=== PATIENT | female | born 1970 | race Caucasian/White ===

== ENCOUNTER → 2016-07-13 | Outpatient (CLI) | payer OTHER ==
--- NOTE | 2016-07-13 14:10 | CT ---
EXAMINATION TYPE: CT sinus wo con DATE OF EXAM: 07/13/2016 1:39 PM COMPARISON: NONE HISTORY: 46-year-old female recurrent acute pansinusitis, complains of recurrent sinus infections. CT DLP: 641.6 mGycm Automated exposure control for dose reduction was used. TECHNIQUE: Noncontrast axial views of the paranasal sinuses were obtained. Coronal reconstructions pe rformed. FINDINGS: Trace mucosal thickening involving the maxillary sinuses. Mild mucosal thickening anterior left ethmo id air cells. There is some fatty opacification along the inferior aspect of the left frontal sinus. There is no air-fluid level. Reactive margarita- osteogenesis is not seen. There is no destruction of the osseous martinez of the paranasal sinuses. The osteomeatal complexes are patent. Leftward nasal septal deviation. The imaged brain, sella, skull base and orbits are normal in appearance within the limitations of the current technique utilized. Mastoid air cells and middle ear cavities are well pneumatized. Reformatted images confirm above findings. IMPRESSION: 1. Some frothy opacification in the inferior left frontal sinus could reflect acute sinusitis. Otherw ise, there is mild mucosal thickening within the anterior left ethmoid air cells and trace in the max illary sinuses. 2. Slight leftward nasal septal deviation.
== END | disposition home or self-care (01) ==
LOC: RADCTMAIN 13:05
PROVIDERS: ATTEND Family Medicine
DX: J34.89 Other specified disorders of nose and nasal sinuses (principal); J34.2 Deviated nasal septum
CPT/HCPCS: 70486

== ENCOUNTER → 2020-02-22 | Outpatient (CLI) | payer OTHER ==
--- NOTE | 2020-02-22 10:05 | MM ---
Reason for exam: clinical finding. Last mammogram was performed 6 years ago. History: Patient is postmenopausal. Took hormonal contraceptives for 10 years. Physical Findings: Nurse Summary: 0.5cm nodule in the left breast at 3 o'clock (nurse allyson). MG Diagnostic Mammo w CAD SY Bilateral CC and MLO view(s) were taken. Prior study comparison: March 04, 2014, bilateral MG screening mammo w CAD. The breast tissue is heterogeneously dense. This may lower the sensitivity of mammography. Palpable marker left upper outer quadrant. Underlying dense breast tissue. Central right MLO asymmetric density does not persist on the lateral view. These results were verbally communicated with the patient and result sheet given to the patient on 02/22/20. ASSESSMENT: Incomplete: need additional imaging evaluation, BI-RAD 0 RECOMMENDATION: Ultrasound of the left breast.
--- NOTE | 2020-02-22 10:10 | USB ---
Reason for exam: additional evaluation requested from abnormal screening. History: Patient is postmenopausal. Took hormonal contraceptives for 10 years. US Breast LT Technologist: Sita Mc Left complete breast ultrasound includes all four quadrants, the retroareolar region and axilla. Finding demonstrates a .6 x 0.5 x 0.3cm cystic cluster at 1 o'clock, a 1.1 x 1.4 x 0.9cm mixed lesion at 2 o'clock, palpable, decreasing in size and no longer painful post antibiotics, 3 month follow up recommended, possible infectious etiology and a 1.2 x 0.8 x 0.3cm mixed lesion at 11 o'clock, possible Apocrine cyst cluster, 3 month follow up recommended. These results were verbally communicated with the patient and result sheet given to the patient on 02/22/20. ASSESSMENT: Probably benign, BI-RAD 3 RECOMMENDATION: Ultrasound of the left breast in 3 months. (2 o'clock and 11 o'clock)
== END | disposition home or self-care (01) ==
LOC: RADMAMWWP 08:32
PROVIDERS: ATTEND Family Medicine
DX: N63.20 Unspecified lump in the left breast, unspecified quadrant (principal); N61.0 Mastitis without abscess; R92.8 Other abnormal and inconclusive findings on diagnostic imaging of breast
CPT/HCPCS: 77066

== ENCOUNTER → 2022-02-14 | Outpatient (CLI) | payer OTHER ==
--- NOTE | 2022-02-15 09:31 | MM ---
Reason for Exam: Screening (asymptomatic). Last mammogram was performed 2 year(s) and 0 month(s) ago. Patient History: Menarche at age 12. First Full-Term at age 22. Hysterectomy at age 32. Postmenopausal. Patient used Hormonal Contraceptives for 10 years. Risk Values: Ju 5 year model risk: 0.9%. NCI Lifetime model risk: 8.9%. Prior Study Comparison: 09/01/2009 Bilateral Diagnostic Mammogram, [facility]. 03/04/2014 Bilateral Screening Mammogram, [facility]. 02/22/2020 Bilateral Diagnostic Mammogram, [facility]. Tissue Density: The breast tissue is heterogeneously dense. This may lower the sensitivity of mammography. Findings: Analyzed By CAD. There is no suspicious group of microcalcifications in either breast. Benign calcifications within both breasts. Asymmetry demonstrated within the upper right breast on the MLO view. This is a middle depth. Overall Assessment: Incomplete: need additional imaging evaluation, BI-RAD 0 Management: Diagnostic Mammogram of the right breast. A clinical breast exam by your physician is recommended on an annual basis and results should be correlated with mammographic findings. [facility] will attempt to contact patient to return for supplemental views and ultrasound if indicated. Electronically signed and approved by: Isrrael Roca D.O.
== END | disposition home or self-care (01) ==
LOC: RADMAMWWP 12:17
PROVIDERS: ATTEND Family Medicine
DX: Z12.31 Encounter for screening mammogram for malignant neoplasm of breast (principal); Z78.0 Asymptomatic menopausal state
CPT/HCPCS: 77063; 77067

== ENCOUNTER → 2022-02-21 | Outpatient (CLI) | payer OTHER ==
--- NOTE | 2022-02-21 14:14 | MM ---
Reason for Exam: Additional evaluation requested from abnormal screening. Last screening mammogram was performed less than 1 month ago. Patient History: Menarche at age 12. First Full-Term at age 22. Hysterectomy at age 32. Postmenopausal. Patient used Hormonal Contraceptives for 10 years. Risk Values: Ju 5 year model risk: 0.9%. NCI Lifetime model risk: 8.8%. Tissue Density: Right: The breast tissue is heterogeneously dense. This may lower the sensitivity of mammography. Findings: Analyzed By CAD. Focal asymmetry within the upper outer right breast middle depth 2 cm from the nipple persists with compression. This may represent dense breast tissue. No worrisome cluster of microcalcifications. Overall Assessment: Incomplete: need additional imaging evaluation, BI-RAD 0 Management: Diagnostic Breast Ultrasound of the right breast. A clinical breast exam by your physician is recommended on an annual basis and results should be correlated with mammographic findings. This exam should not preclude additional follow-up of suspicious palpable abnormalities. Results were given to the patient verbally at the time of exam. Electronically signed and approved by: Isrrael Roca D.O.
--- NOTE | 2022-02-21 14:33 | USB ---
Patient History: Menarche at age 12. First Full-Term at age 22. Hysterectomy at age 32. Postmenopausal. Patient used Hormonal Contraceptives for 10 years. Risk Values: Ju 5 year model risk: 0.9%. NCI Lifetime model risk: 8.8%. Technique: Method: Targeted. Prior Study Comparison: 03/04/2014 Bilateral Screening Mammogram, [facility]. 02/22/2020 Bilateral Diagnostic Mammogram, [facility]. 02/14/2022 Bilateral MG 3D screening mammo w/cad, [facility]. Findings: The upper outer quadrant of the right breast, the axilla of the right breast and the retroareolar of the right breast were scanned. Targeted ultrasound of the right breast from 9-12 o'clock was performed with additional evaluation the nipple and axilla. There is a simple cyst with posterior acoustical enhancement and no internal color flow demonstrated within the right breast at 11:00 2 cm from the nipple measuring 1.5 x 1.0 x 1.9 cm. Overall Assessment: Benign, BI-RAD 2 Management: Screening Mammogram of both breasts in 1 year. A clinical breast exam by your physician is recommended on an annual basis and results should be correlated with mammographic findings. This exam should not preclude additional follow-up of suspicious palpable abnormalities. ??Results were given to the patient verbally at the time of exam. Electronically signed and approved by: Isrrael oRca D.O.
--- NOTE | 2022-02-21 14:33 | USB ---
Patient History: Menarche at age 12. First Full-Term at age 22. Hysterectomy at age 32. Postmenopausal. Patient used Hormonal Contraceptives for 10 years. Risk Values: Ju 5 year model risk: 0.9%. NCI Lifetime model risk: 8.8%. Technique: Method: Targeted. Prior Study Comparison: 03/04/2014 Bilateral Screening Mammogram, [facility]. 02/22/2020 Bilateral Diagnostic Mammogram, [facility]. 02/14/2022 Bilateral MG 3D screening mammo w/cad, [facility]. Findings: The upper outer quadrant of the right breast, the axilla of the right breast and the retroareolar of the right breast were scanned. Targeted ultrasound of the right breast from 9-12 o'clock was performed with additional evaluation the nipple and axilla. There is a simple cyst with posterior acoustical enhancement and no internal color flow demonstrated within the right breast at 11:00 2 cm from the nipple measuring 1.5 x 1.0 x 1.9 cm. Overall Assessment: Benign, BI-RAD 2 Management: Screening Mammogram of both breasts in 1 year. A clinical breast exam by your physician is recommended on an annual basis and results should be correlated with mammographic findings. This exam should not preclude additional follow-up of suspicious palpable abnormalities. ??Results were given to the patient verbally at the time of exam. Electronically signed and approved by: Isrrael Roca D.O.
== END | disposition home or self-care (01) ==
LOC: RADMAMWWP 13:07
PROVIDERS: ATTEND Family Medicine
DX: R92.8 Other abnormal and inconclusive findings on diagnostic imaging of breast (principal); Z78.0 Asymptomatic menopausal state
CPT/HCPCS: 77061; 77065

== ENCOUNTER → 2023-02-22 | Outpatient (CLI) | payer OTHER ==
--- NOTE | 2023-02-25 09:45 | MM ---
Reason for Exam: Screening (asymptomatic). Last screening mammogram was performed 12 month(s) ago. Patient History: Menarche at age 12. First Full-Term at age 22. Hysterectomy at age 32. Postmenopausal. Patient used Hormonal Contraceptives for 10 years. Risk Values: Ju 5 year model risk: 1.0%. NCI Lifetime model risk: 8.7%. Prior Study Comparison: 02/22/2020 Bilateral Diagnostic Mammogram, [facility]. 02/14/2022 Bilateral MG 3D screening mammo w/cad, [facility]. 02/21/2022 Right MG 3D work up w/cad RT, [facility]. Tissue Density: The breast tissue is heterogeneously dense. This may lower the sensitivity of mammography. Findings: Analyzed By CAD. There is no suspicious group of microcalcifications or new suspicious mass. Overall Assessment: Negative, BI-RAD 1 Management: Screening Mammogram of both breasts in [address] [facility] will attempt to contact patient to return for supplemental views and ultrasound if indicated. Patient should continue monthly self-breast exams. A clinical breast exam by your physician is recommended on an annual basis. This exam should not preclude additional follow-up of suspicious palpable abnormalities. Note on Ju scores and lifetime risk: 1. A Ju score greater than 3% is considered moderate risk. If this is the case, consider specialist referral to assess eligibility for a risk reducing agent. 2. If overall lifetime risk for the development of breast cancer is 20% or higher, the patient may qualify for future screening with alternating mammogram and breast MRI. Electronically signed and approved by: Emeka Mcdonough DO
== END | disposition home or self-care (01) ==
LOC: RADMAMWWP 15:26
PROVIDERS: ATTEND Family Medicine
DX: Z12.31 Encounter for screening mammogram for malignant neoplasm of breast (principal); Z78.0 Asymptomatic menopausal state
CPT/HCPCS: 77063; 77067

== ENCOUNTER → 2024-10-20 | Outpatient (CLI) | payer BC, OTHER ==
--- NOTE | 2024-10-20 11:19 | MM ---
Reason for Exam: Screening (asymptomatic). Last mammogram was performed 1 year(s) and 8 month(s) ago. Patient History: Menarche at age 12. First Full-Term at age 22. Hysterectomy at age 32. Postmenopausal. Patient used Hormonal Contraceptives for 10 years. Risk Values: Ju 5 year model risk: 1.0%. NCI Lifetime model risk: 8.5%. Prior Study Comparison: 02/14/2022 Bilateral MG 3D screening mammo w/cad, [facility]. 02/21/2022 Right MG 3D work up w/cad RT, [facility]. 02/22/2023 Bilateral MG 3D screening mammo w/cad, [facility]. Tissue Density: The breasts are heterogeneously dense, which may obscure small masses. Findings: Analyzed By CAD. There is no suspicious group of microcalcifications or new suspicious mass in either breast. Overall Assessment: Negative, BI-RAD 1 Management: Screening Mammogram of both breasts in 1 year. Patient should continue monthly self-breast exams. A clinical breast exam by your physician is recommended on an annual basis. This exam should not preclude additional follow-up of suspicious palpable abnormalities. Note on Ju scores and lifetime risk: 1. A Ju score greater than 3% is considered moderate risk. If this is the case, consider specialist referral to assess eligibility for a risk reducing agent. 2. If overall lifetime risk for the development of breast cancer is 20% or higher, the patient may qualify for future screening with alternating mammogram and breast MRI. [facility], , 10/20/2024 11:16 AM. Electronically signed and approved by: Fausto Romeo M.D. Radiologist
== END | disposition home or self-care (01) ==
LOC: RADMAMWWP 09:37
PROVIDERS: ATTEND Family Medicine
DX: Z12.31 Encounter for screening mammogram for malignant neoplasm of breast (principal); R92.333 Mammographic heterogeneous density, bilateral breasts; Z78.0 Asymptomatic menopausal state; Z92.0 Personal history of contraception
CPT/HCPCS: 77063; 77067